=== PATIENT | female | born 1940 | race Two or more races ===

== ENCOUNTER 2019-09-18 22:17 | Inpatient (IN) | payer MEDICAID ==
[~2019-09-18] VITALS: Ht 157.5 cm; Wt 50.4 kg
[~2019-09-18 22:17] MED LIST: ENAL10TA71 PO; METF850T10 PO; METO50TA82 PO
[2019-09-18] MEDS ORDERED: hydrALAzine 20 MG/ML, 1ML IV ONE (22:30)
--- NOTE | 2019-09-18 22:30 | NUR ---
PT TRANSFERRED FROM [facility], PT WENT THERE WITH SOB AND DIFFICULTY BREATHING, PT HAS HX OF PE LAST IN JUL 2019. PT ALSO HAS ELEVATED TROP 0.18, EMS REPORTS PT TROP IS TYPICALLY SLIGHTLY EVELATED. PT DENIES CP, BUT REPORTS BACK PAIN OR OTHER C/O AT THIS TIME. PT PROVIDED 2MG LASIX FROM [facility]. PT PLACED ON ALL MONITORING, ERMD IN ROOM ON ADMIT TO ED. CALL LIGHT WITHIN REACH, ALL SAFETY MEASURES IN PLACE.
[2019-09-18] MEDS ORDERED: hydrALAzine 20 MG/ML, 1ML ONE (22:38)
--- NOTE | 2019-09-18 22:49 | NUR ---
LAB IN ROOM AT THIS TIME. PT MEDICATED PER MAR.
[2019-09-18] MEDS ORDERED: FURO20TA3 PO (22:53)
--- NOTE | 2019-09-18 23:21 | NUR ---
CTA PENDING CREATINE.
[2019-09-18 23:42] LABS: BASOPHILS # (AUTO) 0.01 x10^3/uL (0-0.1); BASOPHILS % (AUTO) 0 % (0-1); EOSINOPHILS # (AUTO) 0.12 x10^3/uL (0-0.4); EOSINOPHILS % (AUTO) 3 % (1-7); LYMPHOCYTES # (AUTO) 1.15 x10^3/uL (1-3.4); LYMPHOCYTES % (AUTO) 27 % (22-44); MD NO; MEAN CORPUSCULAR HEMOGLOBIN 29.9 pg (27.0-34.8); MEAN CORPUSCULAR HGB CONC 33.3 g/dL (32.4-35.8); MEAN CORPUSCULAR VOLUME 89.8 fL (80-100); MEAN PLATELET VOLUME 8.1 fL (7.4-10.4); MONOCYTES # (AUTO) 0.29 x10^3/uL (0.2-0.8); MONOCYTES % (AUTO) 7 % (2-9); NEUTROPHILS # (AUTO) 2.66 x10^3/uL (1.8-6.8); NEUTROPHILS % (AUTO) 63 % (42-75); PLATELET COUNT 179 x10^3/uL (130-400); RED BLOOD COUNT 3.68 x10^6/uL (3.82-5.3); RED CELL DISTRIBUTION WIDTH 15.4 % (9.6-15.2)
[2019-09-18 23:55] LABS: ALBUMIN 3.1 g/dL (3.4-5.0); ANION GAP 6 mmol/L (5-15); CALCIUM 8.8 mg/dL (8.5-10.1); CHLORIDE 112 mmol/L (98-107); CREATININE 1.34 mg/dL (0.55-1.02)
[2019-09-19] VITALS (7 sets, daily range): BP systolic 99–204; BP diastolic 61–84
[2019-09-19] MEDS ORDERED: morphine SULFATE 10 MG/ML, 1ML IVPush PRN
[2019-09-19] MEDS ORDERED: hydrALAzine 20 MG/ML, 1ML IVPush PRN
[2019-09-19] MEDS ORDERED: ONDANSETRON ODT 4 MG PO PRN
[2019-09-19] MEDS ORDERED: ACETAMINOPHEN 325 MG TABLET PO PRN
[2019-09-19] MEDS ORDERED: ONDANSETRON 2MG/ML, 2ML IVPush PRN
[2019-09-19] MEDS ORDERED: BISACODYL 10 MG SUPP PR PRN
[2019-09-19] MEDS ORDERED: DOCUSATE 100 MG CAPSULE PO PRN
[2019-09-19] MEDS ORDERED: PROMETHAZINE 25 MG/ML, 1ML IM PRN
[2019-09-19] MEDS ORDERED: POLYETHYLENE GLYCOL 17 GM PACKET PO PRN
[2019-09-19] MEDS ORDERED: FUROSEMIDE 40 MG/4 ML IV ONE
[2019-09-19 00:01] LABS: TROPONIN I 0.251 ng/mL (0.000-0.045)
[2019-09-19] MEDS ORDERED: ALBU5SOL6 INH (00:18)
[2019-09-19] MEDS ORDERED: POTA10CA PO (00:18)
[2019-09-19] MEDS ORDERED: CARV3.12 PO (00:18)
[2019-09-19] MEDS ORDERED: BENZ150C3 PO (00:18)
[2019-09-19 00:32] LABS: FREE T4 (FREE THYROXINE) 1.4 ng/dL (0.76-1.46)
[2019-09-19] MEDS ORDERED: OMNIPAQUE 350 MG/ML, 100ML BOTTLE ONE (00:54)
--- NOTE | 2019-09-19 01:02 | NUR ---
IMAGING COMPLETED AT THIS TIME.
[2019-09-19 01:47] LABS: MICROSCOPIC NOT IND
[2019-09-19 01:57] LABS: CULTURE INDICATED? NO
[2019-09-19] MEDS ORDERED: LABETALOL 20 MG/4 ML IVPush PRN (02:30)
[2019-09-19] MEDS: HEPARIN 5,000 UNITS/ML, 1ML SQ SCH ×3 (02:45→17:10)
[2019-09-19 03:43] LABS: TROPONIN I 0.231 ng/mL (0.000-0.045)
[2019-09-19 04:57] LABS: ALBUMIN 2.7 g/dL (3.4-5.0); ANION GAP 8 mmol/L (5-15); CALCIUM 8.2 mg/dL (8.5-10.1); CHLORIDE 110 mmol/L (98-107)
[2019-09-19 05:02] LABS: ALANINE AMINOTRANSFERASE < 6 U/L (12-78); ALKALINE PHOSPHATASE 134 U/L (45-117); BILIRUBIN,TOTAL 0.5 mg/dL (0.2-1.0); CHOL/HDL RATIO 2.3; CHOLESTEROL, TOTAL 129 mg/dL (140-239); HDL CHOL % 43 % (28-40); HDL CHOLESTEROL (DIRECT) 55 mg/dL (40-60); LDL CHOLESTEROL,CALCULATED 52 mg/dL (54-169); LDL/HDL RATIO 0.9 (0.5-3.0); TOTAL PROTEIN 7.2 g/dL (6.4-8.2); TRIGLYCERIDES 109 mg/dL (50-200); TROPONIN I 0.176 ng/mL (0.000-0.045); VLDL CHOLESTEROL 22 mg/dL (0-25)
[2019-09-19 05:12] LABS: BASOPHILS # (AUTO) 0.01 x10^3/uL (0-0.1); BASOPHILS % (AUTO) 0 % (0-1); EOSINOPHILS # (AUTO) 0.09 x10^3/uL (0-0.4); EOSINOPHILS % (AUTO) 2 % (1-7); LYMPHOCYTES # (AUTO) 1.12 x10^3/uL (1-3.4); LYMPHOCYTES % (AUTO) 28 % (22-44); MD NO; MEAN CORPUSCULAR HEMOGLOBIN 31.6 pg (27.0-34.8); MEAN CORPUSCULAR HGB CONC 33.6 g/dL (32.4-35.8); MEAN PLATELET VOLUME 8.1 fL (7.4-10.4); MONOCYTES # (AUTO) 0.38 x10^3/uL (0.2-0.8); MONOCYTES % (AUTO) 10 % (2-9); NEUTROPHILS % (AUTO) 60 % (42-75); PLATELET COUNT 166 x10^3/uL (130-400); RED BLOOD COUNT 3.39 x10^6/uL (3.82-5.3); RED CELL DISTRIBUTION WIDTH 15.1 % (9.6-15.2)
[2019-09-19] MEDS: CARVEDILOL 3.125 MG TABLET PO SCH ×2 (06:37→17:10)
[2019-09-19] MEDS: INSULIN LISPRO 100 UNITS/ML, PEN SQ-INSULIN SCH ×4 (08:39→21:00)
[2019-09-19] MEDS: FUROSEMIDE 20 MG/2 ML IV SCH ×2 (09:20→17:11)
[2019-09-19] MEDS ORDERED: LIDOCAINE 1%, 10ML ONE (15:22)
[2019-09-20] VITALS (10 sets, daily range): BP systolic 100–155; BP diastolic 64–90
[2019-09-20] MEDS: HEPARIN 5,000 UNITS/ML, 1ML SQ SCH ×2 (00:37→09:00)
[2019-09-20] MEDS: CARVEDILOL 3.125 MG TABLET PO SCH ×2 (06:07→18:22)
[2019-09-20] MEDS: INSULIN LISPRO 100 UNITS/ML, PEN SQ-INSULIN SCH ×2 (08:11→13:00)
[2019-09-20] MEDS: FUROSEMIDE 20 MG/2 ML IV SCH ×2 (08:32→17:00)
[2019-09-20] MEDS: ERTAPENEM 1 GM in SODIUM CHLORIDE 0.9% 50 ML IV SCH ×2 (11:18→12:21)
[2019-09-20] MEDS ORDERED: FENTANYL PF 100 MCG/2ML ONE (13:47)
[2019-09-20] MEDS ORDERED: FLUMAZENIL 0.1 MG/1 ML, 5ML ONE (13:47)
[2019-09-20] MEDS ORDERED: MIDAZOLAM 1 MG/ML, 5ML ONE (13:47)
[2019-09-20] MEDS ORDERED: NALOXONE 1 MG/ML, 2ML ONE (13:48)
[2019-09-20] MEDS ORDERED: LIDOCAINE 1%, 10ML ONE (13:48)
[2019-09-20] MEDS: HYDROcodone/APAP 5/325 TABLET PO PRN (21:18)
[2019-09-21 01:48] VITALS: BP 120/63
[2019-09-21] MEDS: HYDROcodone/APAP 5/325 TABLET PO PRN ×2 (02:24→17:29)
[2019-09-21 05:16] VITALS: BP 121/51
[2019-09-21] MEDS: CARVEDILOL 3.125 MG TABLET PO SCH ×2 (05:25→17:28)
[2019-09-21 05:36] LABS: BASOPHILS # (AUTO) 0.02 x10^3/uL (0-0.1); BASOPHILS % (AUTO) 1 % (0-1); EOSINOPHILS # (AUTO) 0.21 x10^3/uL (0-0.4); EOSINOPHILS % (AUTO) 5 % (1-7); LYMPHOCYTES # (AUTO) 1.11 x10^3/uL (1-3.4); LYMPHOCYTES % (AUTO) 27 % (22-44); MD NO; MEAN CORPUSCULAR HEMOGLOBIN 31.1 pg (27.0-34.8); MEAN CORPUSCULAR HGB CONC 33.5 g/dL (32.4-35.8); MEAN CORPUSCULAR VOLUME 92.8 fL (80-100); MEAN PLATELET VOLUME 8.6 fL (7.4-10.4); MONOCYTES # (AUTO) 0.39 x10^3/uL (0.2-0.8); MONOCYTES % (AUTO) 10 % (2-9); NEUTROPHILS % (AUTO) 58 % (42-75); PLATELET COUNT 137 x10^3/uL (130-400); RED BLOOD COUNT 2.76 x10^6/uL (3.82-5.3); RED CELL DISTRIBUTION WIDTH 15.4 % (9.6-15.2)
[2019-09-21 05:44] LABS: ANION GAP 5 mmol/L (5-15); CALCIUM 7.7 mg/dL (8.5-10.1); CHLORIDE 110 mmol/L (98-107)
[2019-09-21 05:49] LABS: CREATININE 2.31 mg/dL (0.55-1.02); TROPONIN I 0.057 ng/mL (0.000-0.045)
[2019-09-21 08:28] VITALS: BP 122/65
[2019-09-21] MEDS: SODIUM CHLORIDE 0.9% 1,000 ML IV SCH ×2 (09:07→14:06)
[2019-09-21] MEDS: ERTAPENEM 0.5 GM in SODIUM CHLORIDE 0.9% 50 ML IV SCH (12:10)
[2019-09-21 14:09] VITALS: BP 145/72
[2019-09-21 18:32] VITALS: BP 126/62
[2019-09-22] VITALS (7 sets, daily range): BP systolic 118–188; BP diastolic 65–78
[2019-09-22] MEDS: CARVEDILOL 3.125 MG TABLET PO SCH ×2 (05:29→18:12)
[2019-09-22 05:39] LABS: BASOPHILS # (AUTO) 0.01 x10^3/uL (0-0.1); BASOPHILS % (AUTO) 0 % (0-1); EOSINOPHILS # (AUTO) 0.19 x10^3/uL (0-0.4); EOSINOPHILS % (AUTO) 5 % (1-7); LYMPHOCYTES # (AUTO) 0.95 x10^3/uL (1-3.4); LYMPHOCYTES % (AUTO) 25 % (22-44); MD NO; MEAN CORPUSCULAR HEMOGLOBIN 30.7 pg (27.0-34.8); MEAN CORPUSCULAR HGB CONC 33.6 g/dL (32.4-35.8); MEAN CORPUSCULAR VOLUME 91.3 fL (80-100); MEAN PLATELET VOLUME 8.4 fL (7.4-10.4); MONOCYTES # (AUTO) 0.28 x10^3/uL (0.2-0.8); MONOCYTES % (AUTO) 8 % (2-9); NEUTROPHILS # (AUTO) 2.31 x10^3/uL (1.8-6.8); NEUTROPHILS % (AUTO) 62 % (42-75); PLATELET COUNT 127 x10^3/uL (130-400); RED BLOOD COUNT 2.77 x10^6/uL (3.82-5.3); RED CELL DISTRIBUTION WIDTH 15.1 % (9.6-15.2)
[2019-09-22 05:51] LABS: ANION GAP 8 mmol/L (5-15); CALCIUM 7.6 mg/dL (8.5-10.1); CHLORIDE 113 mmol/L (98-107)
[2019-09-22 05:52] LABS: CREATININE 2.25 mg/dL (0.55-1.02)
[2019-09-22] MEDS: ERTAPENEM 0.5 GM in SODIUM CHLORIDE 0.9% 50 ML IV SCH (12:32)
[2019-09-23 02:08] VITALS: BP 156/74
[2019-09-23 05:26] VITALS: BP 138/65
[2019-09-23] MEDS: CARVEDILOL 3.125 MG TABLET PO SCH ×2 (05:27→17:55)
[2019-09-23 05:55] LABS: BASOPHILS # (AUTO) 0.01 x10^3/uL (0-0.1); BASOPHILS % (AUTO) 0 % (0-1); EOSINOPHILS # (AUTO) 0.15 x10^3/uL (0-0.4); EOSINOPHILS % (AUTO) 4 % (1-7); LYMPHOCYTES # (AUTO) 0.97 x10^3/uL (1-3.4); LYMPHOCYTES % (AUTO) 27 % (22-44); MD NO; MEAN CORPUSCULAR HEMOGLOBIN 32.5 pg (27.0-34.8); MEAN CORPUSCULAR HGB CONC 34.6 g/dL (32.4-35.8); MEAN CORPUSCULAR VOLUME 93.8 fL (80-100); MEAN PLATELET VOLUME 8.6 fL (7.4-10.4); MONOCYTES # (AUTO) 0.27 x10^3/uL (0.2-0.8); MONOCYTES % (AUTO) 7 % (2-9); NEUTROPHILS # (AUTO) 2.23 x10^3/uL (1.8-6.8); NEUTROPHILS % (AUTO) 62 % (42-75); PLATELET COUNT 131 x10^3/uL (130-400); RED BLOOD COUNT 2.64 x10^6/uL (3.82-5.3); RED CELL DISTRIBUTION WIDTH 15.5 % (9.6-15.2)
[2019-09-23 06:10] LABS: CHLORIDE 114 mmol/L (98-107)
[2019-09-23 06:17] LABS: ALANINE AMINOTRANSFERASE 7 U/L (12-78); ALBUMIN 2.3 g/dL (3.4-5.0); ALKALINE PHOSPHATASE 113 U/L (45-117); ANION GAP 5 mmol/L (5-15); BILIRUBIN,TOTAL 0.3 mg/dL (0.2-1.0); CALCIUM 7.9 mg/dL (8.5-10.1); CREATININE 2.16 mg/dL (0.55-1.02); TOTAL PROTEIN 6.2 g/dL (6.4-8.2)
[2019-09-23 07:29] VITALS: BP 148/54
[2019-09-23] MEDS: ERTAPENEM 0.5 GM in SODIUM CHLORIDE 0.9% 50 ML IV SCH (12:16)
[2019-09-23 12:40] VITALS: BP 155/72
[2019-09-23 19:30] VITALS: BP 159/72
[2019-09-24 01:24] VITALS: BP 152/64
[2019-09-24] MEDS: CARVEDILOL 3.125 MG TABLET PO SCH ×2 (05:18→17:32)
[2019-09-24 05:25] LABS: BASOPHILS # (AUTO) 0.02 x10^3/uL (0-0.1); BASOPHILS % (AUTO) 0 % (0-1); EOSINOPHILS # (AUTO) 0.18 x10^3/uL (0-0.4); EOSINOPHILS % (AUTO) 5 % (1-7); LYMPHOCYTES # (AUTO) 1.09 x10^3/uL (1-3.4); LYMPHOCYTES % (AUTO) 27 % (22-44); MD NO; MEAN CORPUSCULAR HEMOGLOBIN 31.8 pg (27.0-34.8); MEAN CORPUSCULAR HGB CONC 34.1 g/dL (32.4-35.8); MEAN CORPUSCULAR VOLUME 93.2 fL (80-100); MEAN PLATELET VOLUME 8.4 fL (7.4-10.4); MONOCYTES % (AUTO) 8 % (2-9); NEUTROPHILS # (AUTO) 2.45 x10^3/uL (1.8-6.8); NEUTROPHILS % (AUTO) 61 % (42-75); PLATELET COUNT 141 x10^3/uL (130-400); RED BLOOD COUNT 2.82 x10^6/uL (3.82-5.3); RED CELL DISTRIBUTION WIDTH 15.1 % (9.6-15.2)
[2019-09-24 05:29] LABS: ALANINE AMINOTRANSFERASE 6 U/L (12-78); ALBUMIN 2.3 g/dL (3.4-5.0); ANION GAP 5 mmol/L (5-15); CALCIUM 7.9 mg/dL (8.5-10.1); CHLORIDE 114 mmol/L (98-107); CREATININE 2.06 mg/dL (0.55-1.02)
[2019-09-24 05:31] LABS: ALKALINE PHOSPHATASE 136 U/L (45-117); BILIRUBIN,TOTAL 0.3 mg/dL (0.2-1.0); TOTAL PROTEIN 6.1 g/dL (6.4-8.2)
[2019-09-24 07:06] VITALS: BP 149/69
[2019-09-24] MEDS: ERTAPENEM 0.5 GM in SODIUM CHLORIDE 0.9% 50 ML IV SCH (11:27)
[2019-09-24] MEDS ORDERED: ERTA1VIA IV (11:53)
[2019-09-24] MEDS ORDERED: POLY17PO5 PO (11:53)
[2019-09-24] MEDS ORDERED: FURO-92 PO (11:53)
[2019-09-24] MEDS ORDERED: CARV3.1212 PO (11:53)
[2019-09-24] MEDS ORDERED: POTA20PA25 PO (11:53)
[2019-09-24] MEDS ORDERED: ONDA4TAB13 PO (11:53)
[2019-09-24 13:06] VITALS: BP 143/74
[2019-09-24 19:25] VITALS: BP 146/74
[2019-09-25 00:47] VITALS: BP 184/85
[2019-09-25 02:22] VITALS: BP 143/63
[2019-09-25 05:23] VITALS: BP 125/68
[2019-09-25] MEDS: CARVEDILOL 3.125 MG TABLET PO SCH ×2 (05:26→18:36)
[2019-09-25 08:02] VITALS: BP 127/64
[2019-09-25] MEDS ORDERED: TRAM50TA2 PO ×2 (10:45)
[2019-09-25] MEDS: ERTAPENEM 0.5 GM in SODIUM CHLORIDE 0.9% 50 ML IV SCH (12:06)
[2019-09-25 14:12] VITALS: BP 138/66
== END 2019-09-25 20:12 | disposition home or self-care (01) | DRG 194 ==
LOC: ED 22:38 → EDIP 09-19 00:45 → 5SO 09-19 01:10
PROVIDERS: ADMIT Internal Medicine; ATTEND Internal Medicine
PROC: 0W9B3ZZ Drainage of Left Pleural Cavity, Percutaneous Approach (ICD-10-PCS; principal; 2019-09-19)
PROC: 02HV33Z Insertion of Infusion Device into Superior Vena Cava, Percutaneous Approach (ICD-10-PCS; 2019-09-20)
PROC: B5181ZA Fluoroscopy of Superior Vena Cava using Low Osmolar Contrast, Guidance (ICD-10-PCS; 2019-09-20)
PROC: B548ZZA Ultrasonography of Superior Vena Cava, Guidance (ICD-10-PCS; 2019-09-20)
PROC: 0W9B30Z Drainage of Left Pleural Cavity with Drainage Device, Percutaneous Approach (ICD-10-PCS; 2019-09-20)
DX: I13.0 Hypertensive heart and chronic kidney disease with heart failure and stage 1 through stage 4 chronic kidney disease, or unspecified chronic kidney disease (principal); I21.A1 Myocardial infarction type 2; J96.01 Acute respiratory failure with hypoxia; E43 Unspecified severe protein-calorie malnutrition; J95.811 Postprocedural pneumothorax; Y84.4 Aspiration of fluid as the cause of abnormal reaction of the patient, or of later complication, without mention of misadventure at the time of the procedure; Y92.239 Unspecified place in hospital as the place of occurrence of the external cause; N17.0 Acute kidney failure with tubular necrosis; I50.43 Acute on chronic combined systolic (congestive) and diastolic (congestive) heart failure; E87.2 Acidosis; J91.8 Pleural effusion in other conditions classified elsewhere; N18.3 Chronic kidney disease, stage 3 (moderate); I34.0 Nonrheumatic mitral (valve) insufficiency; I16.1 Hypertensive emergency; Z88.0 Allergy status to penicillin; B96.20 Unspecified Escherichia coli [E. coli] as the cause of diseases classified elsewhere; D64.9 Anemia, unspecified; E04.9 Nontoxic goiter, unspecified; E11.22 Type 2 diabetes mellitus with diabetic chronic kidney disease; Z68.20 Body mass index [BMI] 20.0-20.9, adult; I31.3 Pericardial effusion (noninflammatory); I45.10 Unspecified right bundle-branch block; I70.0 Atherosclerosis of aorta; K22.8 Other specified diseases of esophagus; N14.1 Nephropathy induced by other drugs, medicaments and biological substances; N39.0 Urinary tract infection, site not specified; T50.8X5A Adverse effect of diagnostic agents, initial encounter; Z16.12 Extended spectrum beta lactamase (ESBL) resistance; Z87.891 Personal history of nicotine dependence; Y92.89 Other specified places as the place of occurrence of the external cause
CPT/HCPCS: J3490 ×2; 32551; 32555; 32557; 36415; 36573; 71045; 71250; 71275; 74220; 74230; 80048; 80053; 80061; 81003; 82040; 82945; 82962; 83036; 83605; 83615; 83735; 84100; 84145; 84439; 84443; 84484; 85025; 87040; 87070; 87075; 87205; 88112; 88305; 89051; 93005; 93306; 96374; 99156; 99157; 99291; G0378; J1335; J1644; J1940; J2250; J3010; Q9967; C1729; C1751; C1769; J0360; J2310; J7030